=== PATIENT | female | born 1995 | race Caucasian/White ===

== ENCOUNTER 2019-06-28 03:27 | Inpatient (IN) ==
[2019-06-28] MEDS ORDERED: OXYTOCIN 30 UNITS/500 ML BAG IV PRN ×3 (04:22→18:48)
[2019-06-28] MEDS ORDERED: BUTORPHANOL TARTRATE 1 MG/ML VIAL IV PRN (04:37)
[2019-06-28 04:44] LABS: Hematocrit (blood only) 35.9 % (37-47); Hemoglobin 11.9 g/dL (12.0-16.0); Mean Corpuscular Hemoglobin 29.8 pg (25-34); Platelet Count 130 K/uL (130-400); RDW Coefficient of Variation 15.6 % (11.5-14.5); RDW Standard Deviation 50.9 fL (36.4-46.3); Red Blood Count 3.99 M/uL (4.2-5.4)
[2019-06-28 04:45] LABS: Mean Corpuscular Hgb Conc 33.1 g/dL (32-36)
[2019-06-28] MEDS: LACTATED RINGER'S 1,000 ML IV PRN ×2 (10:06→14:25)
[2019-06-28] MEDS ORDERED: fentaNYL citrate 100 MCG/2 ML VIAL ONE (14:01)
[2019-06-28] MEDS ORDERED: ePHEDrine sulfate 50 MG/ML AMP ONE (14:01)
[2019-06-28] MEDS ORDERED: BUPIVACAINE 0.25% 30 ML VIAL ONE (14:01)
[2019-06-28] MEDS ORDERED: fentaNYL 2MCG/ML ROPIV 1.25MG/ML 100 ML BAG EPI ONE (14:02)
--- NOTE | 2019-06-28 14:19 | Anesthesiology Consultation ---
Date of Service June 28, 2019 Assessment & Plan Chart Review Chart Review: Acceptable Risk for Surgery, Patient NOT seen in Pre Admission Testing and Acceptable Risk for Labor Epidural Consults Requested none ASA ASA2 Proposed Anesthesia Anesthesia Type: General and Labor Epidural History Height/Weight Height: 5 ft 3 in Weight: 77.111 kg Allergies Allergy/AdvReac Type Severity Reaction Status Date / Time No Known Allergies Allergy Verified 12/22/18 17:40 Medications Home Medications Medication Instructions Recorded Confirmed Last Taken pediatric multivitamin no.76 1 tab PO DAILY 02/05/19 06/28/19 06/27/19 22:00 [Flintstones Complete] ferrous sulfate [Iron (ferrous 325 mg PO DAILY 06/28/19 06/28/19 06/27/19 08:00 sulfate)] Active Medications Generic Name Dose Route Start Last Admin Trade Name Freq PRN Reason Stop Dose Admin Butorphanol Tartrate 1 mg 06/28/19 04:37 06/28/19 13:24 Stadol IV 07/28/19 04:36 1 mg Q2R PRN Administration Pain Lactated Ringer's 1,000 mls @ 125 mls/hr 06/28/19 04:22 06/28/19 13:56 Lr IV 06/30/19 04:21 999 mls/hr .Q8H PRN Infusion L&D Protocol Protocol Oxytocin 30 units in 500 mls @ 14 mls/hr 06/28/19 09:24 06/28/19 13:30 Pitocin IV 06/30/19 09:23 0.84 units/hr .Q24H PRN 14 mls/hr Labor Induction/Augmentation Titration Protocol 0.84 UNITS/HR Past Medical History Medical History [place] teeth removed Exercise / Class Metabolic Activity II 4-5 Yardwork/Stairs/Walk up hill Past Family History Family History Other No significant family history Past Surgical History Surgical History History of appendectomy Past Anesthesia History No Hx of Anesthesia Complications and No Family Hx of Anesthesia Complications History of PONV No Hx of PONV and No Hx of Motion Sickness Social History Smoking Status: Never smoker Do You Dip or Chew Tobacco: No Hx Alcohol Use: No Hx Substance Use: No substance use type: does not use Physical Exam Vital Signs Last Vital Signs Temp 36.7 C 06/28/19 13:12 Pulse 86 06/28/19 14:12 Resp 20 06/28/19 13:12 BP 133/83 06/28/19 14:12 Testing Laboratory Results 06/28/19 04:32
[2019-06-28] MEDS ORDERED: NALBUPHINE HCL INJ 10 MG/ML AMP IV PRN (15:09)
[2019-06-28] MEDS ORDERED: ONDANSETRON INJ 2 MG/ML 2 ML VIAL IV PRN (15:09)
[2019-06-28] MEDS ORDERED: PROMETHAZINE HCL 25 MG in SODIUM CHLORIDE 0.9% 50 ML IV PRN (15:09)
[2019-06-28] MEDS ORDERED: ePHEDrine sulfate 50 MG/ML AMP IV PRN (15:09)
[2019-06-28] MEDS ORDERED: DiphenhydrAMINE HCL 50 MG/ML VIAL IV PRN (15:09)
[2019-06-28] MEDS ORDERED: fentaNYL 2MCG/ML ROPIV 1.25MG/ML 100 ML BAG EPI PRN (15:09)
[2019-06-28] MEDS ORDERED: NALOXONE HCL 1 MG in SODIUM CHLORIDE 0.9% 1000ML 1,000 ML IV PRN (15:09)
[2019-06-28] MEDS ORDERED: NALOXONE HCL 0.4 MG/1 ML VIAL/CARP IV PRN (15:09)
[2019-06-28] MEDS ORDERED: METHYLERGONOVINE MALEATE 0.2 MG/ML AMP ONE (18:16)
[2019-06-28] MEDS ORDERED: SUPERCREAM 0.870% 15 GM JAR EXT PRN (18:48)
[2019-06-28] MEDS ORDERED: BENZOCAINE 20% AER SPR 82.5 GM CAN EXT PRN (18:48)
[2019-06-28] MEDS ORDERED: ACETAMINOPHEN 325 MG TAB PO PRN (18:48)
[2019-06-28] MEDS ORDERED: bisacodyL 10 MG SUPP PR PRN (18:48)
[2019-06-28] MEDS ORDERED: HYDROCORTISONE ACETATE 25 MG SUPP PR PRN (18:48)
[2019-06-28] MEDS ORDERED: DIPHTHERIA/TETANUS/PERTUSSIS 0.5 ML SYR/VIAL IM ONE (18:48)
[2019-06-28] MEDS ORDERED: METHYLERGONOVINE MALEATE 0.2 MG/ML AMP IM ONE (18:48)
[2019-06-28] MEDS ORDERED: OXYCODONE/ACETAMINOPHEN 5mg/325mg TAB PO PRN (18:48)
--- NOTE | 2019-06-28 19:28 | Anesthesia Procedure Note ---
Date of Service June 28, 2019 Anesthesia Post Epidural Note Vital Signs Vital Signs: Temp Pulse Resp BP Pulse Ox 36.8 C 96 H 16 121/76 98 06/28/19 17:17 06/28/19 19:20 06/28/19 19:20 06/28/19 19:20 06/28/19 18:10 Pain Intensity Abdomen: Pain Intensity: 0 Notes Mental Status: alert / awake / arousable Nausea / Vomiting: adequately controlled Pain: adequately controlled Airway Patency, RR, SpO2: stable & adequate BP & HR: stable & adequate Hydration State: stable & adequate Neuraxial Anesthesia: was administered and sensory block is resolving Anesthetic Complications: no major complications apparent Epidural: Removed without complications and With tip intact
--- NOTE | 2019-06-28 22:33 | Operative Report ---
DATE OF OPERATION: 06/28/2019 DELIVERY NOTE: 1, para 1. Blood type is O negative. Vaginal beta strep negative. She was admitted on 06/27/2019, 2:00 a.m. in the morning with george rupture of membranes. She contracted during the night; however, felt no contractions. The next day after I came in, we started her on IV Pitocin. IV Pitocin was off until she was painful. She then had an epidural for anesthesia for pain control. She obtained good relief. Soon after the epidural was placed, she was checked and found to be 7 cm. She went to full dilatation, delivered a live female via direct occiput anterior position over an intact perineum. There was a tight nuchal cord x1 which was cut prior to delivery. Following delivery, cord blood was taken. Placenta was removed intact with IV Pitocin and IM Methergine. She had a midline tear of the clitoral area. This area was infiltrated with local with epinephrine and sutured with 4 interrupted sutures of 3-0 chromic. We used a red rubber Ivan to ensure patency of the urethra, empty the bladder of about 100 mL. There was a vaginal septum which originated right to the left of the urethral opening and went from there to about 8 o'clock on the other side of the vagina. The tissue was stretched, tied at the base and then resected. Following this, a tear revealed a second-degree laceration. Vaginal mucosa was approximated out to beyond the hymenal ring with a heavy duty suture of Vicryl. A deep suture of Vicryl was used to approximate the bulbocavernosus muscle. Two interrupted sutures were used to approximate the perineal body and then the rectal sphincter capsule was bolstered with an interrupted heavy Vicryl and then a running subcuticular suture of 2-0 Vicryl was used to approximate the perineal skin edges. Following this, vag exam including rectovaginal examination revealed no hematoma formation, no sponges in the vagina. No sutures through the rectum. Estimated blood loss was 300 mL. Apgars deferred to the nurses. I attest to the content of the Intraoperative Record and any orders documented therein. Any exception s are noted below.
[2019-06-28] MEDS: IBUPROFEN 600 MG TAB PO PRN (22:38)
[2019-06-29] MEDS: IBUPROFEN 600 MG TAB PO PRN ×4 (04:17→20:51)
[2019-06-29] MEDS: ACETAMINOPHEN W/CODEINE #3 1 TAB PO PRN ×3 (05:17→23:27)
[2019-06-29] MEDS ORDERED: OXYCODONE HCL IR 5 MG TAB (IMMEDIATE RELEASE) PO STA (06:05)
[2019-06-29] MEDS ORDERED: OXYCODONE/ACETAMINOPHEN 5mg/325mg TAB PO PRN (06:10)
[2019-06-29 06:38] LABS: Hematocrit (blood only) 30.7 % (37-47); Hemoglobin 10.5 g/dL (12.0-16.0); Mean Corpuscular Hemoglobin 30.5 pg (25-34); Mean Corpuscular Hgb Conc 34.2 g/dL (32-36); Mean Corpuscular Volume 89.2 fL (80-100); Mean Platelet Volume 10.8 fL (7.4-10.4); Platelet Count 121 K/uL (130-400); RDW Coefficient of Variation 15.5 % (11.5-14.5); RDW Standard Deviation 50.2 fL (36.4-46.3); Red Blood Count 3.44 M/uL (4.2-5.4); White Blood Count 6.35 K/uL (4.8-10.8)
--- NOTE | 2019-06-29 07:39 | Obstetrical Progress Note ---
Date of Service June 29, 2019 Subjective much less pain this AM rating 1/10 some burning when she voids tolerating diet Physical Exam Constitutional: WD/WN, vitals as above comfortable no edema of legs neg Royer's abdomen soft non-tender fundus firm vulva are inflamed and some swelling noted no significant pain over repair/intact minimal lochia rubra will continue ice Results & Data Vital Signs (Past 12 Hours) Vital Signs Temp Pulse Pulse Resp BP BP Pulse Ox 06/29/19 04:10 36.7 C 82 16 109/71 99 06/28/19 23:30 36.9 C 83 16 116/78 97 06/28/19 21:35 36.7 C 88 16 127/79 98 06/28/19 20:51 115 H 135/82 06/28/19 20:50 36.7 C 16 06/28/19 20:20 104 H 125/84 06/28/19 20:05 101 H 126/86 06/28/19 19:50 36.5 C 93 H 16 122/80 Laboratory Results Laboratory Results - last 48 hr 06/28/19 06/29/19 04:32 06:24 WBC 6.40 6.35 RBC 3.99 L 3.44 L Hgb 11.9 L 10.5 L Hct 35.9 L 30.7 L MCV 90.0 89.2 MCH 29.8 30.5 MCHC 33.1 34.2 RDW Std Deviation 50.9 H 50.2 H RDW Coeff of Sara 15.6 H 15.5 H Plt Count 130 121 L MPV 11.0 H 10.8 H
[2019-06-29] MEDS: DOCUSATE SODIUM 100 MG CAP PO SCH ×2 (08:20→20:51)
[2019-06-29] MEDS: PRENATAL VITAMIN 1 TAB PO SCH (08:21)
[2019-06-29] MEDS ORDERED: bisacodyL 5 MG TABEC PO SCH (20:00)
[2019-06-30] MEDS: IBUPROFEN 600 MG TAB PO PRN (05:01)
[2019-06-30 06:35] LABS: Hematocrit (blood only) 27.6 % (37-47); Hemoglobin 9.3 g/dL (12.0-16.0)
[2019-06-30] MEDS: PRENATAL VITAMIN 1 TAB PO SCH (08:29)
[2019-06-30] MEDS: DOCUSATE SODIUM 100 MG CAP PO SCH (08:29)
--- NOTE | 2019-06-30 08:59 | Obstetrical Progress Note ---
Date of Service June 30, 2019 Subjective Patient is seen and examined. She feels well, no complaints. Likes to be discharged Ambulating without dizziness Voiding without difficulty Tolerating regular diet with out N&V Bleeding is minimal No fever/ chills/ CP/ SOB/ N&V/ Leg pain Breast feeding without problems Vital Signs Temp Pulse Pulse Pulse Resp BP BP 06/29/19 23:20 36.5 C 91 H 20 108/72 06/29/19 19:45 36.6 C 93 H 20 105/71 06/29/19 16:00 36.5 C 88 18 108/69 06/29/19 12:00 36.5 C 97 H 18 104/69 06/29/19 11:03 36.4 C L 94 H 20 108/73 Pulse Ox 06/29/19 23:20 98 06/29/19 19:45 99 06/29/19 16:00 98 06/29/19 12:00 98 06/29/19 11:03 Lab Results 06/28/19 06/29/19 06/29/19 Range/Units 04:32 06:24 06:24 WBC 6.40 6.35 (4.8-10.8) K/uL RBC 3.99 L 3.44 L (4.2-5.4) M/uL Hgb 11.9 L 10.5 L (12.0-16.0) g/dL Hct 35.9 L 30.7 L (37-47) % MCV 90.0 89.2 (80-100) fL MCH 29.8 30.5 (25-34) pg MCHC 33.1 34.2 (32-36) g/dL RDW Std Deviation 50.9 H 50.2 H (36.4-46.3) fL RDW Coeff of Sara 15.6 H 15.5 H (11.5-14.5) % Plt Count 130 121 L (130-400) K/uL MPV 11.0 H 10.8 H (7.4-10.4) fL Blood Type O Negative Antibody Screen POSITIVE A Antibody Identification Anti-M Antibody ID Comment Antigen Identification M Antigen - NEGATIVE Screen Negative (Negative) 06/30/19 Range/Units 06:17 WBC (4.8-10.8) K/uL RBC (4.2-5.4) M/uL Hgb 9.3 L (12.0-16.0) g/dL Hct 27.6 L (37-47) % MCV (80-100) fL MCH (25-34) pg MCHC (32-36) g/dL RDW Std Deviation (36.4-46.3) fL RDW Coeff of Sara (11.5-14.5) % Plt Count (130-400) K/uL MPV (7.4-10.4) fL Blood Type Antibody Screen Antibody Identification Antibody ID Comment Antigen Identification Screen (Negative) PE: General: Alert, orientedx3, NAD Abd: soft, NT, fundus firm, below Umbilicus Perineum intact, Lochia rubra minimal Ext; NT, no edema AP: 24 yo s/p , ppd# 2 VSS Afebrile doing well Continue routine care All questions were answered D/C home , f/u in office Discussed when to call Results & Data Vital Signs (Past 12 Hours) Vital Signs Temp Pulse Resp BP Pulse Ox 06/29/19 23:20 36.5 C 91 H 20 108/72 98
[2019-06-30] MEDS ORDERED: FERROUS SULFATE 325 MG/7.4 ML UDP PO SCH (09:00)
[2019-06-30] MEDS ORDERED: MEASLES, MUMPS & RUBELLA VIRUS VIAL SQ ONE (10:44)
== END 2019-06-30 11:50 | disposition home or self-care (01) | DRG 768 ==
LOC: OPB 03:27 → 4S1 03:41 → 4S2 21:16

== ENCOUNTER 2021-03-13 07:36 | Inpatient (IN) ==
[2021-03-13] MEDS ORDERED: OXYTOCIN 30 UNITS/500 ML BAG IV PRN ×2 (08:47→20:20)
[2021-03-13 09:28] LABS: Hematocrit (blood only) 35.1 % (37-47); Hemoglobin 11.7 g/dL (12.0-16.0); Mean Corpuscular Hemoglobin 29.8 pg (25-34); Mean Corpuscular Hgb Conc 33.3 g/dL (32-36); Mean Corpuscular Volume 89.5 fL (80-100); Mean Platelet Volume 11.2 fL (7.4-10.4); Platelet Count 130 K/uL (130-400); RDW Coefficient of Variation 15.6 % (11.5-14.5); RDW Standard Deviation 50.8 fL (36.4-46.3); Red Blood Count 3.92 M/uL (4.2-5.4); White Blood Count 5.73 K/uL (4.8-10.8)
--- NOTE | 2021-03-13 10:12 | History & Physical Report ---
Date of Service March 13, 2021 Assessment & Plan (1) Post-dates : Plan: Cytotec to start induction Admission and Anticipated Discharge Date Admission Date: March 13, 2021 History of Present Illness Chief Complaint: 26 F P1001 at 40.2 weeks admitted for induction of labor for post dates. Her GBS and Covid are both negative. FHT Cat 1. Prenantal course has been uncomplicated. Cervix is 2/50/-3/vertex/anterior. Patient is very uncomfortable with exams and made the exam difficult. Will start induction with Cytotec 50 mcg orally every 4 hours. Primary Care Provider: Mohan Lynch MD see above Allergies Allergy/AdvReac Type Severity Reaction Status Date / Time No Known Allergies Allergy Verified 12/22/18 17:40 Home Medications Medication Instructions Recorded Confirmed Type pediatric multivitamin no.76 1 tab PO DAILY 02/05/19 03/13/21 History (Flintstones Complete) ferrous sulfate 325 mg (65 mg 325 mg PO DAILY 06/28/19 03/13/21 History iron) tablet (Iron (ferrous sulfate)) Patient History Medical History Asthma in remission Spontaneous rupture of amniotic membranes Surgical History History of appendectomy [place] teeth removed Family History Other No significant family history Social History Smoking Status: Never smoker Second Hand Exposure: No; Hx Alcohol Use: No Hx Substance Use: No Preferred Language: Colombian Communication Ability: Effective Feed In Worker Required: No Beliefs That Will Affect Care: None marital status: marital status details: Ilya Current Living Situation: Spouse Current Living Situation Comment: children current occupational status: employed Other Information That Helps Us Care for You: No Feels Safe at Home: Yes Safety Concerns: Feels Safe At This Time Assistive Devices: Contacts 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 Review of Systems All systems reviewed & are unremarkable except as noted in HPI & below Physical Exam Constitutional: WD/WN, vitals as above Respiratory: normal respiratory effort, lungs clear to auscultation Cardiovascular: RRR, no murmur, no edema Skin: no rashes, warm and dry Neurologic: patellar DTR's 2+ bilat, sensation intact Psychiatric: A+Ox3, euthymic affect Genitourinary: no vaginal lesions, no adnexal mass OB Exam Abdomen: + heart tones and + vertex Manual OB Exam: + cervical dilation 2 cm, + cervical effacement 50% and + station high OB Exam Monitor Tracing: + external FHT monitor used, + external uterine monitor used, + category I and + normal FHT variability Results & Data ([facility]) Vital Signs (Past 12 Hours) Vital Signs Temp Pulse Resp BP 03/13/21 08:04 36.6 C 103 H 16 117/76 03/13/21 07:48 103 H 117/76 Laboratory Results Laboratory Results - last 72 hr 03/13/21 03/13/21 03/13/21 08:15 08:15 09:09 WBC 5.73 RBC 3.92 L Hgb 11.7 L Hct 35.1 L MCV 89.5 MCH 29.8 MCHC 33.3 RDW Std Deviation 50.8 H RDW Coeff of Sara 15.6 H Plt Count 130 MPV 11.2 H COVID-19 Eval [facility] SARS-CoV-2, RNA, NAAT NEGATIVE Code Status & VTE Plan VTE Prophylaxis Plan VTE Prophylaxis will be ordered: No
[2021-03-13] MEDS: LACTATED RINGER'S 1,000 ML IV PRN ×3 (10:40→15:10)
[2021-03-13] MEDS ORDERED: miSOPROStoL 50 MCG TAB PO SCH (12:00)
[2021-03-13] MEDS ORDERED: SODIUM CHLORIDE 0.9% INJ 10 ML VIAL ONE (13:51)
[2021-03-13] MEDS ORDERED: ePHEDrine sulfate 50 MG/ML AMP ONE (13:51)
[2021-03-13] MEDS ORDERED: fentaNYL citrate 100 MCG/2 ML VIAL ONE (13:51)
[2021-03-13] MEDS ORDERED: BUPIVACAINE 0.25% 30 ML VIAL ONE (13:51)
[2021-03-13] MEDS ORDERED: fentaNYL 2MCG/ML ROPIVACAINE 1.25MG/ML 100 ML BAG EPI ONE (13:51)
[2021-03-13] MEDS ORDERED: NALOXONE HCL 0.4 MG/1 ML VIAL/CARP IV PRN (14:00)
[2021-03-13] MEDS ORDERED: fentaNYL 2MCG/ML ROPIVACAINE 1.25MG/ML 100 ML BAG EPI PRN (14:00)
[2021-03-13] MEDS ORDERED: NALOXONE HCL 1 MG in SODIUM CHLORIDE 0.9% 1000ML 1,000 ML IV PRN (14:00)
[2021-03-13] MEDS ORDERED: ePHEDrine sulfate 50 MG/ML AMP IV PRN (14:00)
[2021-03-13] MEDS ORDERED: diphenhydrAMINE 50 MG/ML VIAL IV PRN (14:00)
[2021-03-13] MEDS ORDERED: ONDANSETRON INJ 2 MG/ML 2 ML VIAL IV PRN (14:00)
[2021-03-13] MEDS ORDERED: NALBUPHINE HCL INJ 10 MG/ML AMP IV PRN (14:00)
--- NOTE | 2021-03-13 14:02 | Anesthesiology Consultation ---
Date of Service March 13, 2021 Assessment & Plan (1) Encounter for pre-operative examination: Chart Review Chart Review: Patient NOT seen in Pre Admission Testing and Acceptable Risk for Labor Epidural Consults Requested none History Height/Weight Height: 5 ft 3 in Weight: 76.657 kg Allergies Allergy/AdvReac Type Severity Reaction Status Date / Time No Known Allergies Allergy Verified 12/22/18 17:40 Medications Home Medications Medication Instructions Recorded Confirmed Last Taken pediatric multivitamin no.76 1 tab PO DAILY 02/05/19 03/13/21 03/12/21 20:00 (Flintstones Complete) ferrous sulfate 325 mg (65 mg 325 mg PO DAILY 06/28/19 03/13/21 03/12/21 20:00 iron) tablet (Iron (ferrous sulfate)) Active Medications Generic Name Dose Route Start Last Admin Trade Name Freq PRN Reason Stop Dose Admin Lactated Ringer's 1,000 mls @ 125 mls/hr 03/13/21 08:47 03/13/21 13:52 Lr IV 03/15/21 08:46 999 mls/hr .Q8H PRN Administration L&D Protocol Protocol Past Medical History Medical History Asthma in remission Spontaneous rupture of amniotic membranes Exercise / Class Metabolic Activity II 4-5 Yardwork/Stairs/Walk up hill Past Family History Family History Other No significant family history Past Surgical History Surgical History History of appendectomy [place] teeth removed Past Anesthesia History No Hx of Anesthesia Complications and No Family Hx of Anesthesia Complications History of PONV No Hx of PONV and No Hx of Motion Sickness Social History Smoking Status: Never smoker Do You Dip or Chew Tobacco: No Hx Alcohol Use: No Hx Substance Use: No substance use type: does not use Physical Exam Vital Signs Last Vital Signs Temp 36.6 C 03/13/21 12:02 Pulse 85 03/13/21 14:15 Resp 18 03/13/21 14:00 BP 120/73 03/13/21 13:44 Pulse Ox 100 03/13/21 14:15 Testing Laboratory Results 03/13/21 09:09
[2021-03-13] MEDS: OXYTOCIN 30 UNITS/500 ML BAG IV PRN ×2 (15:20→19:03)
[2021-03-13] MEDS: miSOPROStoL 50 MCG TAB PO SCH ×2 (15:29→19:07)
--- NOTE | 2021-03-13 17:36 | Labor Progress Brief Note ---
Date of Service March 13, 2021 Assessment & Plan Admission and Anticipated Discharge Date Admission Date: March 13, 2021 Physical Exam Genitourinary: Manual OB Exam: + cervical dilation 5 cm, + cervical effacement 60% and + station -2 OB Exam Monitor Tracing: + external FHT monitor used, + external uterine monitor used, + category I and + normal FHT variability Results & Data ([facility]) Vital Signs (Past 12 Hours) Vital Signs Temp Pulse Resp BP Pulse Ox 03/13/21 17:31 89 101/65 99 03/13/21 17:26 84 100 03/13/21 17:21 78 97 03/13/21 17:16 104 H 104/58 L 98 03/13/21 17:11 89 97 03/13/21 17:06 133 H 99 03/13/21 17:01 110 H 106/59 L 99 03/13/21 17:00 16 03/13/21 16:56 122 H 99 03/13/21 16:51 89 99 03/13/21 16:46 117 H 107/58 L 99 03/13/21 16:41 106 H 100 03/13/21 16:36 90 98 03/13/21 16:31 113 H 108/66 99 03/13/21 16:30 16 03/13/21 16:26 97 H 97 03/13/21 16:21 84 96 03/13/21 16:16 75 109/59 L 98 03/13/21 16:11 94 H 98 03/13/21 16:07 36.5 C 18 03/13/21 16:06 88 98 03/13/21 16:01 85 94/51 L 03/13/21 16:00 82 98 03/13/21 15:55 108 H 98 03/13/21 15:50 83 98 03/13/21 15:45 93 H 99 03/13/21 15:44 83 102/58 L 03/13/21 15:40 106 H 99 03/13/21 15:37 87 94/54 L 03/13/21 15:35 77 98 03/13/21 15:33 82 98/53 L 03/13/21 15:30 80 16 99 03/13/21 15:29 79 96/51 L 03/13/21 15:25 82 98 03/13/21 15:22 85 96/57 L 03/13/21 15:20 82 99 03/13/21 15:17 76 93/51 L 03/13/21 15:15 82 99 03/13/21 15:13 85 101/59 L 03/13/21 15:10 84 99 03/13/21 15:08 88 107/60 03/13/21 15:05 94 H 99 03/13/21 15:03 85 100/50 L 03/13/21 15:00 86 18 99 03/13/21 14:59 75 100/51 L 03/13/21 14:55 92 H 99 03/13/21 14:52 101 H 99/60 L 03/13/21 14:50 106 H 99 03/13/21 14:48 94 H 113/58 L 03/13/21 14:45 92 H 99 03/13/21 14:43 95 H 108/59 L 03/13/21 14:40 112 H 99 03/13/21 14:38 110 H 125/70 03/13/21 14:35 114 H 100 03/13/21 14:34 116 H 89 L 03/13/21 14:31 110 H 105/63 03/13/21 14:30 105 H 18 99 03/13/21 14:29 87 100/56 L 03/13/21 14:27 36.6 C 85 16 101/57 L 03/13/21 14:25 100 H 108/55 L 99 03/13/21 14:23 82 102/59 L 03/13/21 14:20 82 108/56 L 100 03/13/21 14:15 85 100 03/13/21 14:10 90 100 03/13/21 14:05 84 100 03/13/21 14:00 92 H 18 98 03/13/21 13:55 89 99 03/13/21 13:50 93 H 99 03/13/21 13:45 87 99 03/13/21 13:44 82 120/73 03/13/21 12:02 36.6 C 88 16 109/66 03/13/21 08:04 36.6 C 103 H 16 117/76 03/13/21 07:48 103 H 117/76
[2021-03-13] MEDS ORDERED: ACETAMINOPHEN 325 MG TAB PO PRN (20:20)
[2021-03-13] MEDS ORDERED: SUPERCREAM 0.870% 15 GM JAR EXT PRN (20:20)
[2021-03-13] MEDS ORDERED: bisacodyL 10 MG SUPP PR PRN (20:20)
[2021-03-13] MEDS ORDERED: HYDROCORTISONE ACETATE 25 MG SUPP PR PRN (20:20)
[2021-03-13] MEDS ORDERED: DIPHTHERIA/TETANUS/PERTUSSIS 0.5 ML SYR/VIAL IM ONE (20:20)
[2021-03-13] MEDS ORDERED: BENZOCAINE 20% AER SPR 82.5 GM CAN EXT PRN (20:20)
--- NOTE | 2021-03-13 20:20 | Delivery Summary ---
Vaginal Delivery Summary Date of Service March 13, 2021 Vaginal Delivery Summary Delivery Note live female over intact perineum IMANI with delayed cord clamping and Apgars 8/9 weight pending. Cord blood obtained followed by spontaneous delivery of intact placenta. First degree tear repaired with 3/0 Vicryl. EBL 200 ml. Final sponge, needle and instrument count are correct. Mom and baby stable.
--- NOTE | 2021-03-13 20:40 | Anesthesia Procedure Note ---
Date of Service March 13, 2021 Anesthesia Post Epidural Note Vital Signs Vital Signs: Temp Pulse Resp BP Pulse Ox 36.8 C 94 H 18 116/66 100 03/13/21 19:05 03/13/21 20:25 03/13/21 20:10 03/13/21 20:25 03/13/21 19:57 Pain Intensity Bilateral Abdomen: Pain Intensity: 0 Notes Mental Status: alert / awake / arousable and participated in evaluation Patient Amnestic to Procedure: No Nausea / Vomiting: adequately controlled Pain: adequately controlled Airway Patency, RR, SpO2: stable & adequate BP & HR: stable & adequate Hydration State: stable & adequate Neuraxial Anesthesia: was administered and sensory block is resolving Anesthetic Complications: no major complications apparent and Pt Satisfied with anesthetic care Epidural: Removed without complications and With tip intact
[2021-03-13] MEDS: DOCUSATE SODIUM 100 MG CAP PO SCH (21:45)
[2021-03-13] MEDS: IBUPROFEN 600 MG TAB PO PRN (22:35)
[2021-03-14] MEDS: IBUPROFEN 600 MG TAB PO PRN ×3 (02:53→14:01)
[2021-03-14 06:26] LABS: Hemoglobin 11.1 g/dL (12.0-16.0); Mean Corpuscular Hemoglobin 30.4 pg (25-34); Mean Corpuscular Hgb Conc 33.6 g/dL (32-36); Mean Corpuscular Volume 90.4 fL (80-100); Mean Platelet Volume 11.1 fL (7.4-10.4); Platelet Count 128 K/uL (130-400); RDW Coefficient of Variation 15.4 % (11.5-14.5); RDW Standard Deviation 51.8 fL (36.4-46.3); Red Blood Count 3.65 M/uL (4.2-5.4); White Blood Count 8.76 K/uL (4.8-10.8)
[2021-03-14] MEDS: DOCUSATE SODIUM 100 MG CAP PO SCH (08:00)
[2021-03-14] MEDS ORDERED: FERROUS SULFATE 325 MG TAB PO SCH (08:00)
[2021-03-14] MEDS ORDERED: PRENATAL VITAMIN 1 TAB PO SCH (08:00)
--- NOTE | 2021-03-14 08:27 | Obstetrical Progress Note ---
Date of Service March 14, 2021 Assessment & Plan Admission and Anticipated Discharge Date Admission Date: March 13, 2021 Subjective Patient is seen and examined. She feels well, no complaints. Desire d/c tonight. Ambulating without dizziness Voiding without difficulty Tolerating regular diet with out N&V Bleeding is minimal No fever/ chills/ CP/ SOB/ N&V/ Leg pain Bottle feeding without problems Vital Signs Temp Pulse Pulse Resp BP BP Pulse Ox 03/14/21 08:10 36.7 C 80 16 101/62 97 03/14/21 05:15 36.4 C L 86 18 120/75 03/13/21 23:25 36.9 C 91 H 18 115/73 03/13/21 22:25 87 113/62 03/13/21 22:10 36.8 C 90 18 114/65 03/13/21 21:55 93 H 121/67 03/13/21 21:40 90 18 115/58 L 03/13/21 21:25 96 H 118/62 03/13/21 21:10 101 H 18 130/71 03/13/21 20:55 93 H 18 126/74 03/13/21 20:40 101 H 18 117/73 Lab Results 03/13/21 03/13/21 03/13/21 Range/Units 08:15 08:15 09:09 WBC 5.73 (4.8-10.8) K/uL RBC 3.92 L (4.2-5.4) M/uL Hgb 11.7 L (12.0-16.0) g/dL Hct 35.1 L (37-47) % MCV 89.5 (80-100) fL MCH 29.8 (25-34) pg MCHC 33.3 (32-36) g/dL RDW Std Deviation 50.8 H (36.4-46.3) fL RDW Coeff of Sara 15.6 H (11.5-14.5) % Plt Count 130 (130-400) K/uL MPV 11.2 H (7.4-10.4) fL COVID-19 Eval [facility] SARS-CoV-2, RNA, NAAT NEGATIVE (NEGATIVE) 03/14/21 Range/Units 06:08 WBC 8.76 (4.8-10.8) K/uL RBC 3.65 L (4.2-5.4) M/uL Hgb 11.1 L (12.0-16.0) g/dL Hct 33.0 L (37-47) % MCV 90.4 (80-100) fL MCH 30.4 (25-34) pg MCHC 33.6 (32-36) g/dL RDW Std Deviation 51.8 H (36.4-46.3) fL RDW Coeff of Sara 15.4 H (11.5-14.5) % Plt Count 128 L (130-400) K/uL MPV 11.1 H (7.4-10.4) fL COVID-19 Eval Order SARS-CoV-2, RNA, NAAT (NEGATIVE) PE: General: Alert, orientedx3, NAD Abd: soft, NT, fundus firm, below Umbilicus Perineum intact, Lochia rubra minimal Ext; NT, no edema AP: 26 yo s/p , ppd# 1 VSS Afebrile doing well Continue routine care h/o gestational thrombocytopenia with resolution Recommended cbc at f/u All questions were answered D/C home after 24 hours Results & Data ([facility]) Vital Signs (Past 12 Hours) Vital Signs Temp Pulse Pulse Resp BP BP Pulse Ox 03/14/21 08:10 36.7 C 80 16 101/62 97 03/14/21 05:15 36.4 C L 86 18 120/75 03/13/21 23:25 36.9 C 91 H 18 115/73 03/13/21 22:25 87 113/62 03/13/21 22:10 36.8 C 90 18 114/65 03/13/21 21:55 93 H 121/67 03/13/21 21:40 90 18 115/58 L 03/13/21 21:25 96 H 118/62 03/13/21 21:10 101 H 18 130/71 03/13/21 20:55 93 H 18 126/74 03/13/21 20:40 101 H 18 117/73
[2021-03-14] MEDS ORDERED: [UNRECOGNIZED DRUG - OTHER] PO SCH (09:00)
[2021-03-14] MEDS ORDERED: NON-FORMULARY MEDICATION (Ferrous Sulfate [Iron (Ferrous Sulfate)] 325 mg (65 mg iron) Tab PO SCH (09:00)
[2021-03-14] MEDS ORDERED: MULTIVITAMIN PO SCH (09:00)
[2021-03-14] MEDS ORDERED: MEASLES, MUMPS & RUBELLA VIRUS VIAL SQ ONE (16:45)
[2021-03-14] MEDS ORDERED: bisacodyL 5 MG TABEC PO SCH (20:00)
== END 2021-03-14 21:35 | disposition home or self-care (01) | DRG 807 ==
LOC: 4S1 07:36 → 4S2 23:07